=== PATIENT | female | born 1995 | race Caucasian/White ===

== ENCOUNTER 2021-07-08 09:52 | Emergency (ER) | payer BC, OTHER ==
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
[2021-07-08 12:20] LABS: Amphetamine Screen,Urine Not Detected (NotDetected); Barbiturate Screen,Urine Not Detected (NotDetected); Benzodiazepines Screen,Urine Not Detected (NotDetected); Cocaine Screen,Urine Not Detected (NotDetected); Methadone Screen, Urine Not Detected (NotDetected); Opiate Screen,Urine Not Detected (NotDetected); Oxycodone Screen, Urine Not Detected (NotDetected); Phencyclidine Screen,Urine Not Detected (NotDetected); Tricyclic Antidepressant,Urine Not Detected (NotDetected); Urn Cannabinoid Scrn Detected (NotDetected)
[2021-07-09] MEDS ORDERED: NICOTINE 7MG/24HR PATCH TRANSDERM STA (00:48)
[2021-07-09 00:55] LABS: Basophils % (A) 1 %; Eosinophils # (A) 0.1 k/uL (0-0.7); Eosinophils % (A) 1 %; HCT 40.4 % (34.0-46.0); HGB 13.1 gm/dL (11.4-16.0); Lymphocytes # (A) 2.1 k/uL (1.0-4.8); Lymphocytes % (A) 30 %; MCH 31.2 pg (25.0-35.0); MCHC 32.5 g/dL (31.0-37.0); Mean Platelet Volume 7.9; Monocytes # (A) 0.4 k/uL (0-1.0); Monocytes % (A) 5 %; Neutrophils # (A) 4.4 k/uL (1.3-7.7); Neutrophils % (A) 62 %; Platelet Count 306 k/uL (150-450); RBC 4.21 m/uL (3.80-5.40); RDW 12.4 % (11.5-15.5); WBC 7.1 k/uL (3.8-10.6)
[2021-07-09 01:13] LABS: ALT 32 U/L (4-34); AST 42 U/L (14-36); African American GFR (CKD) >90 (>60 ml/min/1.73 sqM); Albumin 4.5 g/dL (3.5-5.0); Alkaline Phosphatase 84 U/L (38-126); Anion Gap 10 mmol/L; Blood Urea Nitrogen 16 mg/dL (7-17); Carbon Dioxide 24 mmol/L (22-30); Chloride 103 mmol/L (98-107); Glucose 92 mg/dL (74-99); Non-African American GFR(CKD) >90 (>60 ml/min/1.73 sqM); Potassium 4.1 mmol/L (3.5-5.1); Sodium 137 mmol/L (137-145); Total Bilirubin 0.5 mg/dL (0.2-1.3); Total Protein 7.8 g/dL (6.3-8.2)
[2021-07-09] MEDS ORDERED: NEOMYCIN-BACITRACIN-POLY OINT 1 APPLIC/EACH PACKET TOPICAL STA (10:40)
[2021-07-09 14:02] VITALS: RESP 18
[2021-07-09 15:19] VITALS: BP 133/71; PULSE 95; TEMP 98.1
== END 2021-07-09 15:21 ==
LOC: EC 09:52
DX: R45.851 Suicidal ideations (principal); F41.9 Anxiety disorder, unspecified; F17.200 Nicotine dependence, unspecified, uncomplicated; F12.90 Cannabis use, unspecified, uncomplicated
CPT/HCPCS: 99285; 82075; 36415; 80053; 85025; 81025; 80306; 87635; S4990

== ENCOUNTER 2022-02-05 05:48 | Emergency (ER) | payer OTHER ==
[2022-02-05 05:59] VITALS: BP 125/74; PULSE 95; TEMP 98.5
[2022-02-05 06:18] VITALS: RESP 16
--- NOTE | 2022-02-05 06:29 | ED ---
General Adult HPI - General Chief complaint: Upper Respiratory Infection Stated complaint: Throat hurts, runny nose Time Seen by Provider: 02/05/22 06:05 Source: patient Mode of arrival: ambulatory - History of Present Illness Initial comments: 26-year-old female presents to the emergency room for a chief complaint of cough. Patient states that yesterday she developed a cough as well as some congestion. Patient denies sore throat but feels like a lymph node on the left side of her neck is swollen. No fevers. 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 She denies shortness of breath. No history of asthma.Patient has no other complaints at this time including shortness of breath, chest pain, abdominal pain, nausea or vomiting, headache, or visual changes. - Related Data Previous Rx's Medication Instructions Recorded Benzonatate [Tessalon Perles] 200 mg PO Q8H PRN #30 capsule 02/05/22 Allergies Allergy/AdvReac Type Severity Reaction Status Date / Time No Known Allergies Allergy Verified 02/05/22 05:59 Review of Systems ROS Statement: Those systems with pertinent positive or pertinent negative responses have been documented in the HPI. ROS Other: All systems not noted in ROS Statement are negative. Past Medical History Past Medical History: No Reported History History of Any Multi-Drug Resistant Organisms: None Reported Additional Past Surgical History / Comment(s): tubes in ears removed (childhood) Past Psychological History: Anxiety Smoking Status: Vaper Past Alcohol Use History: Occasional Past Drug Use History: Marijuana General Exam General appearance: alert, in no apparent distress Head exam: Present: atraumatic Eye exam: Present: normal appearance, PERRL, EOMI. Absent: scleral icterus, conjunctival injection ENT exam: Present: normal exam, mucous membranes moist Neck exam: Present: normal inspection, full ROM. Absent: tenderness Respiratory exam: Present: normal lung sounds bilaterally. Absent: respiratory distress, wheezes Cardiovascular Exam: Present: regular rate, normal rhythm, normal heart sounds Neurological exam: Present: alert Course Vital Signs 02/05/22 02/05/22 05:55 06:17 Temperature 98.5 F Pulse Rate 95 Respiratory 18 16 Rate Blood Pressure 125/74 O2 Sat by Pulse 98 Oximetry Medical Decision Making - Medical Decision Making Vitals are stable. Patient is well-appearing. She does have a dry cough noted. COVID-19 and influenza are negative. Chest x-ray shows some central peribronchial cuffing that could relate to bronchitis or asthma. No focal infiltrate seen. At this time patient is stable for discharge home. She will return here for any worsening symptoms and will otherwise follow up with primary care. - Lab Data Lab Results 02/05/22 02/05/22 Range/Units 06:11 06:11 Coronavirus (PCR) Not Detected (Not Detectd) Influenza Type A RNA Not Detected (Not Detectd) Influenza Type B (PCR) Not Detected (Not Detectd) Disposition Clinical Impression: Cough Disposition: HOME SELF-CARE Condition: Good Instructions (If sedation given, give patient instructions): Upper Respiratory Infection (ED) Additional Instructions: Take [id number] cough medicine. Try Tessalon Perles as well. Please follow-up with your doctor. Return to the emergency room for any worsening symptoms. Prescriptions: Benzonatate [Tessalon Perles] 200 mg PO Q8H PRN #30 capsule PRN Reason: Cough Is patient prescribed a controlled substance at d/c from ED?: No Referrals: Landon Pal DO [Doctor of Osteopathic Medicine] - 1-2 days Time of Disposition: 07:30
--- NOTE | 2022-02-05 07:26 | XR ---
EXAMINATION TYPE: XR chest 2V DATE OF EXAM: 02/05/2022 COMPARISON: None HISTORY: 26-year-old female with cough and congestion TECHNIQUE: PA and lateral views FINDINGS: The cardiomediastinal silhouette, aorta, and pulmonary vasculature are within normal limits. Some mil d central peribronchial cuffing is noted. Some stringy atelectasis in the lower lungs. No consolidati on or pleural effusion. IMPRESSION: Some central peribronchial cuffing could reflect bronchitis or asthma. No focal infiltrate seen.
== END 2022-02-05 07:42 | disposition home or self-care (01) ==
LOC: EC 05:48
DX: R05.9 Cough, unspecified (principal); F41.9 Anxiety disorder, unspecified; F12.90 Cannabis use, unspecified, uncomplicated; F17.290 Nicotine dependence, other tobacco product, uncomplicated; Z72.89 Other problems related to lifestyle; Z20.822 Contact with and (suspected) exposure to COVID-19
CPT/HCPCS: 71046; 87502; 87635; 99283